=== PATIENT | female | born 1945 | race Caucasian/White ===

== ENCOUNTER 2022-01-22 03:54 | Inpatient (IN) | payer OTHER ==
[2022-01-22] MEDS ORDERED: SODIUM CHLORIDE 0.9% 500 ML INFUS.BAG IV ONE (04:33)
[2022-01-22] MEDS ORDERED: ACETAMINOPHEN 1000 MG/100 ML BAG IVPB ONE (04:33)
[2022-01-22 05:53] LABS: HEMATOCRIT 36.9 % (32.4-45.2); HEMOGLOBIN 12.4 GM/dL (10.7-15.3); MCH 28.9 pg (25.7-33.7); MCHC 33.5 g/dl (32.0-36.0); MEAN CELL VOLUME 86.2 fl (80-96); MEAN PLT VOLUME 8.6 fl (7.5-11.1); PLATELET COUNT 298 10^3/uL (134-434); RBC 4.28 M/mm3 (3.60-5.2); RDW 13.6 % (11.6-15.6); WHITE BLOOD COUNT 10.7 K/mm3 (4.0-10.0)
[2022-01-22 05:55] LABS: VENOUS BASE EXCESS 1.1 mmol/L (-2-2); VENOUS O2 SATURATION 77.4 % (70-80); VENOUS PCO2 35.8 mmHg (38-52); VENOUS PH 7.455 (7.310-7.410)
[2022-01-22 06:05] LABS: INR 1.04 (0.83-1.09)
[2022-01-22 06:08] LABS: ACTIVATED PTT 29.7 SECONDS (25.2-36.5)
[2022-01-22 06:11] LABS: CHLORIDE 106 mmol/L (98-107); SODIUM 141 mmol/L (136-145)
[2022-01-22 06:13] LABS: ALBUMIN 3.2 g/dl (3.4-5.0); ANION GAP 10 MMOL/L (8-16); BLOOD UREA NITROGEN 8.2 mg/dL (7-18); CALCIUM 8.2 mg/dL (8.5-10.1); CO2 25 mmol/L (21-32); GLUCOSE,RANDOM 95 mg/dL (74-106)
[2022-01-22 06:15] LABS: CREATININE 0.5 mg/dL (0.55-1.3); SGOT/AST 43 U/L (15-37)
[2022-01-22 06:16] LABS: SGPT/ALT 35 U/L (13-61)
[2022-01-22 06:18] LABS: BILIRUBIN,TOTAL 0.7 mg/dL (0.2-1); TOT PROT 6.3 g/dl (6.4-8.2)
[2022-01-22 06:19] LABS: ALK PHOS 252 U/L (45-117)
[2022-01-22] MEDS ORDERED: AZITHROMYCIN IVPB 500 MG in DEXTROSE 5%-WATER - 250 ML IVPB ONE (06:33)
[2022-01-22 06:40] LABS: LACTIC ACID 2.4 mmol/L (0.4-2.0)
[2022-01-22] MEDS ORDERED: AZITHROMYCIN IVPB 500 MG/250 ML BAG IVPB ONE (06:45)
[2022-01-22] MEDS ORDERED: CEFTRIAXONE 1 GM in DEXTROSE 5%-WATER - 50 ML IVPB ONE (07:36)
[2022-01-22 08:41] LABS: ANISOCYTOSIS 0; HELMET CELLS 0; HOWELL-JOLLY BODIES 0; MACROCYTOSIS 0; OVALOCYTE 0; ROULEAU 0; SICKELED CELLS 0; TARGET CELLS 0; TEAR DROP CELLS 0; TOXIC GRANULATION 0
[2022-01-22] MEDS ORDERED: cefTRIAXone SODIUM 1 GM VIAL ONE (09:23)
[2022-01-22] MEDS ORDERED: LACTATED RINGERS SOLUTION 1,000 ML IV SCH (10:15)
[2022-01-22 11:01] LABS: EPI CELLS 29 /uL (0-25.1); HYALINE CASTS 1 /uL (0-3.1); PH,URINE 6.5 (5.0-8.0); URINE APPEARANCE CLOUDY; URINE BACTERIA >9,000 /uL (0-1359); URINE BILIRUBIN NEGATIVE (NEGATIVE); URINE COLOR YELLOW; URINE GLUCOSE (UA) NEGATIVE (NEGATIVE); URINE KETONE NEGATIVE (NEGATIVE); URINE LEUK ESTERASE 2+ (NEGATIVE); URINE NITRITE POSITIVE (NEGATIVE); URINE PROTEIN TRACE (NEGATIVE); URINE RBC 29 /uL (0-23.9); URINE WBC 396 /uL (0-25.8)
[2022-01-22] MEDS ORDERED: LACTATED RINGERS SOLUTION 1000 ML INFUS.BAG IV ONE (12:49)
[2022-01-22] MEDS: ACETAMINOPHEN 325 MG TABLET (FP) PO PRN (12:53)
[2022-01-22] MEDS ORDERED: ACETAMINOPHEN 325 MG TABLET (FP) ONE (12:54)
[2022-01-22] MEDS ORDERED: POTASSIUM CHLORIDE ORAL LIQUID 20 MEQ/15 ML PO ONE (14:24)
[2022-01-22 15:42] LABS: LACTIC ACID 2.9 mmol/L (0.4-2.0)
[2022-01-22 16:13] LABS: MAGNESIUM 1.9 mg/dL (1.8-2.4)
[2022-01-22 16:17] LABS: PHOSPHOROUS 2.8 mg/dL (2.5-4.9)
[2022-01-22] MEDS ORDERED: SODIUM CHLORIDE 1,000 ML IV STA (16:27)
[2022-01-22] MEDS: PANTOPRAZOLE 40 MG TABLET PO SCH (17:29)
[2022-01-22] MEDS: SODIUM CHLORIDE 1,000 ML IV SCH (17:29)
[2022-01-22] MEDS ORDERED: PANTOPRAZOLE 40 MG TABLET PO ONE (17:59)
[2022-01-22] MEDS ORDERED: SODIUM CHLORIDE 500 ML IV STA ×2 (21:48→22:44)
[2022-01-22 22:36] LABS: LACTIC ACID 3.1 mmol/L (0.4-2.0)
[2022-01-22] MEDS ORDERED: PIPERACILLIN/TAZOB 4.5 GM 4.5 GM/100 ML BAG IVPB ONE (22:46)
[2022-01-22] MEDS: PIPERACILLIN/TAZOB 4.5 GM 4.5 GM in DEXTROSE 5%-WATER 100 ML IVPB SCH ×2 (22:47→22:55)
[2022-01-23] MEDS ORDERED: SODIUM CHLORIDE 1,000 ML IV STA (00:53)
[2022-01-23] MEDS ORDERED: ACETAMINOPHEN 325 MG TABLET (FP) ONE (03:23)
[2022-01-23] MEDS: ACETAMINOPHEN 325 MG TABLET (FP) PO PRN (03:30)
[2022-01-23 07:24] LABS: BASO % 0.4 % (0-2.0); EOS % 0.2 % (0-4.5); HEMATOCRIT 28.1 % (32.4-45.2); HEMOGLOBIN 9.7 GM/dL (10.7-15.3); LYMPH % 8.8 % (8-40); MCH 29.8 pg (25.7-33.7); MCHC 34.7 g/dl (32.0-36.0); MEAN CELL VOLUME 85.9 fl (80-96); MEAN PLT VOLUME 8.8 fl (7.5-11.1); MONO % 5.5 % (3.8-10.2); NEUT % 85.1 % (42.8-82.8); PLATELET COUNT 233 10^3/uL (134-434); RBC 3.27 M/mm3 (3.60-5.2); RDW 13.8 % (11.6-15.6); WHITE BLOOD COUNT 11.7 K/mm3 (4.0-10.0)
[2022-01-23 07:46] LABS: BLOOD UREA NITROGEN 8.2 mg/dL (7-18); MAGNESIUM 1.8 mg/dL (1.8-2.4)
[2022-01-23 07:48] LABS: CREATININE 0.4 mg/dL (0.55-1.3); PHOSPHOROUS 2.2 mg/dL (2.5-4.9)
[2022-01-23 07:50] LABS: BILIRUBIN,TOTAL 0.8 mg/dL (0.2-1); TOT PROT 4.7 g/dl (6.4-8.2)
[2022-01-23 07:58] LABS: ALBUMIN 2.3 g/dl (3.4-5.0)
[2022-01-23] MEDS: PIPERACILLIN/TAZOB 4.5 GM 4.5 GM in DEXTROSE 5%-WATER 100 ML IVPB SCH ×3 (09:04→15:59)
[2022-01-23] MEDS ORDERED: PANTOPRAZOLE 40 MG TABLET PO ONE (09:51)
[2022-01-23] MEDS ORDERED: POTASSIUM CHLORIDE TABS 20 MEQ TABLET.ER (FP) PO ONE (09:51)
[2022-01-23] MEDS ORDERED: ENOXAPARIN NA (PORCINE) 40 MG/0.4 ML DISP.SYRIN SQ ONE (09:52)
[2022-01-23] MEDS ORDERED: AZITHROMYCIN IVPB 500 MG/250 ML BAG IVPB ONE (09:52)
[2022-01-23] MEDS ORDERED: CEFTRIAXONE 1 GM in DEXTROSE 5%-WATER - 50 ML IVPB SCH (10:00)
[2022-01-23] MEDS ORDERED: AZITHROMYCIN IVPB 500 MG/250 ML BAG IVPB SCH (10:00)
[2022-01-23] MEDS: ENOXAPARIN NA (PORCINE) 40 MG/0.4 ML DISP.SYRIN SQ SCH (10:26)
[2022-01-23] MEDS: PANTOPRAZOLE 40 MG TABLET PO SCH (10:26)
[2022-01-23] MEDS: POTASSIUM CHLORIDE TABS 20 MEQ TABLET.ER (FP) PO SCH ×2 (10:26→21:24)
[2022-01-23] MEDS ORDERED: PIPERACILLIN/TAZOB 4.5 GM 4.5 GM/100 ML BAG IVPB ONE (11:41)
[2022-01-23 13:16] VITALS: BMI 24.0
[2022-01-23] MEDS: SODIUM CHLORIDE 1,000 ML IV SCH ×2 (13:34→17:45)
[2022-01-23] MEDS: PIPERACILLIN/TAZOB 3.375 GM 3.375 GM in DEXTROSE 5%-WATER - 50 ML IVPB SCH (17:16)
[2022-01-24] MEDS: PIPERACILLIN/TAZOB 3.375 GM 3.375 GM in DEXTROSE 5%-WATER - 50 ML IVPB SCH ×3 (01:34→17:04)
[2022-01-24] MEDS: SODIUM CHLORIDE 1,000 ML IV SCH ×3 (02:06→17:04)
[2022-01-24] MEDS: PANTOPRAZOLE 40 MG TABLET PO SCH (09:27)
[2022-01-24] MEDS: ENOXAPARIN NA (PORCINE) 40 MG/0.4 ML DISP.SYRIN SQ SCH (09:27)
[2022-01-24 09:54] LABS: BASO % 0.9 % (0-2.0); EOS % 2.1 % (0-4.5); HEMATOCRIT 33.1 % (32.4-45.2); HEMOGLOBIN 11.1 GM/dL (10.7-15.3); LYMPH % 24.8 % (8-40); MCHC 33.7 g/dl (32.0-36.0); MEAN CELL VOLUME 85.9 fl (80-96); MEAN PLT VOLUME 9.3 fl (7.5-11.1); MONO % 9.9 % (3.8-10.2); NEUT % 62.3 % (42.8-82.8); PLATELET COUNT 284 10^3/uL (134-434); RBC 3.85 M/mm3 (3.60-5.2); RDW 13.7 % (11.6-15.6); WHITE BLOOD COUNT 5.4 K/mm3 (4.0-10.0)
[2022-01-24 10:21] LABS: ALBUMIN 2.6 g/dl (3.4-5.0); BLOOD UREA NITROGEN 3.8 mg/dL (7-18); CALCIUM 8.2 mg/dL (8.5-10.1)
[2022-01-24 10:24] LABS: CREATININE 0.6 mg/dL (0.55-1.3)
[2022-01-24 10:25] LABS: BILIRUBIN,TOTAL 0.6 mg/dL (0.2-1); TOT PROT 5.7 g/dl (6.4-8.2)
[2022-01-24] MEDS: LIDOCAINE 5% TOPICAL PATCH TP SCH (10:42)
[2022-01-24] MEDS: LIDOCAINE PATCH REMOVAL MC SCH (21:51)
[2022-01-25] MEDS: PIPERACILLIN/TAZOB 3.375 GM 3.375 GM in DEXTROSE 5%-WATER - 50 ML IVPB SCH (01:07)
[2022-01-25] MEDS: SODIUM CHLORIDE 1,000 ML IV SCH (05:41)
[2022-01-25 09:41] LABS: BASO % 1.1 % (0-2.0); EOS % 3.1 % (0-4.5); HEMATOCRIT 36.4 % (32.4-45.2); HEMOGLOBIN 12.1 GM/dL (10.7-15.3); MCH 28.5 pg (25.7-33.7); MCHC 33.2 g/dl (32.0-36.0); MEAN CELL VOLUME 85.9 fl (80-96); MEAN PLT VOLUME 9.4 fl (7.5-11.1); MONO % 8.6 % (3.8-10.2); NEUT % 53.2 % (42.8-82.8); PLATELET COUNT 338 10^3/uL (134-434); RBC 4.24 M/mm3 (3.60-5.2); RDW 14.4 % (11.6-15.6); WHITE BLOOD COUNT 4.3 K/mm3 (4.0-10.0)
[2022-01-25 09:59] LABS: CALCIUM 8.8 mg/dL (8.5-10.1)
[2022-01-25 10:00] LABS: ALBUMIN 2.8 g/dl (3.4-5.0); BLOOD UREA NITROGEN 4.2 mg/dL (7-18)
[2022-01-25 10:02] LABS: CREATININE 0.5 mg/dL (0.55-1.3)
[2022-01-25 10:04] LABS: BILIRUBIN,TOTAL 0.5 mg/dL (0.2-1)
[2022-01-25] MEDS: ENOXAPARIN NA (PORCINE) 40 MG/0.4 ML DISP.SYRIN SQ SCH (10:12)
[2022-01-25] MEDS: PANTOPRAZOLE 40 MG TABLET PO SCH (10:12)
[2022-01-25] MEDS: LIDOCAINE 5% TOPICAL PATCH TP SCH (10:12)
[2022-01-25] MEDS: MEROPENEM 1 GM in DEXTROSE 5%-WATER 100 ML IVPB SCH ×2 (10:13→17:01)
[2022-01-25] MEDS: LIDOCAINE PATCH REMOVAL MC SCH (22:15)
[2022-01-26] MEDS: MEROPENEM 1 GM in DEXTROSE 5%-WATER 100 ML IVPB SCH ×4 (02:10→18:32)
[2022-01-26 09:28] LABS: BASO % 1.2 % (0-2.0); EOS % 2.8 % (0-4.5); HEMATOCRIT 39.1 % (32.4-45.2); HEMOGLOBIN 13.4 GM/dL (10.7-15.3); MCH 29.3 pg (25.7-33.7); MCHC 34.3 g/dl (32.0-36.0); MEAN CELL VOLUME 85.5 fl (80-96); MEAN PLT VOLUME 8.8 fl (7.5-11.1); MONO % 10.8 % (3.8-10.2); NEUT % 53.2 % (42.8-82.8); PLATELET COUNT 394 10^3/uL (134-434); RBC 4.57 M/mm3 (3.60-5.2); RDW 13.8 % (11.6-15.6); WHITE BLOOD COUNT 3.8 K/mm3 (4.0-10.0)
[2022-01-26 10:00] LABS: ALBUMIN 3.1 g/dl (3.4-5.0); BLOOD UREA NITROGEN 5.1 mg/dL (7-18); CALCIUM 9.3 mg/dL (8.5-10.1); MAGNESIUM 2.2 mg/dL (1.8-2.4)
[2022-01-26 10:03] LABS: CREATININE 0.5 mg/dL (0.55-1.3)
[2022-01-26 10:05] LABS: BILIRUBIN,TOTAL 0.5 mg/dL (0.2-1); TOT PROT 6.7 g/dl (6.4-8.2)
[2022-01-26] MEDS: LIDOCAINE 5% TOPICAL PATCH TP SCH (10:45)
[2022-01-26] MEDS: ENOXAPARIN NA (PORCINE) 40 MG/0.4 ML DISP.SYRIN SQ SCH (10:47)
[2022-01-26] MEDS: PANTOPRAZOLE 40 MG TABLET PO SCH (10:47)
[2022-01-26] MEDS ORDERED: PANTOPRAZOLE SODIUM 40 MG VIAL IVPUSH ONE (17:34)
[2022-01-26] MEDS ORDERED: ACETAMINOPHEN 325 MG TABLET (FP) PO PRN (19:54)
[2022-01-26] MEDS: LIDOCAINE PATCH REMOVAL MC SCH (21:51)
[2022-01-27] MEDS: MEROPENEM 1 GM in DEXTROSE 5%-WATER 100 ML IVPB SCH ×3 (02:06→17:28)
[2022-01-27] MEDS: ENOXAPARIN NA (PORCINE) 40 MG/0.4 ML DISP.SYRIN SQ SCH (11:22)
[2022-01-27] MEDS: PANTOPRAZOLE 40 MG TABLET PO SCH ×2 (11:23→22:15)
[2022-01-27] MEDS: LIDOCAINE 5% TOPICAL PATCH TP SCH (11:23)
[2022-01-27] MEDS: LIDOCAINE PATCH REMOVAL MC SCH (22:15)
[2022-01-28] MEDS: MEROPENEM 1 GM in DEXTROSE 5%-WATER 100 ML IVPB SCH ×3 (02:36→17:40)
[2022-01-28] MEDS: ENOXAPARIN NA (PORCINE) 40 MG/0.4 ML DISP.SYRIN SQ SCH (10:10)
[2022-01-28] MEDS: PANTOPRAZOLE 40 MG TABLET PO SCH ×2 (10:10→21:58)
[2022-01-28] MEDS: LIDOCAINE 5% TOPICAL PATCH TP SCH (10:10)
[2022-01-28] MEDS ORDERED: LIDOCAINE 5% TOPICAL PATCH TP ONE (10:43)
[2022-01-28] MEDS: LIDOCAINE PATCH REMOVAL MC SCH ×2 (21:57)
[2022-01-29] MEDS: MEROPENEM 1 GM in DEXTROSE 5%-WATER 100 ML IVPB SCH ×3 (01:38→17:18)
[2022-01-29] MEDS: PANTOPRAZOLE 40 MG TABLET PO SCH ×2 (10:03→21:58)
[2022-01-29] MEDS: ENOXAPARIN NA (PORCINE) 40 MG/0.4 ML DISP.SYRIN SQ SCH (10:03)
[2022-01-29] MEDS: LIDOCAINE 5% TOPICAL PATCH TP SCH (10:04)
[2022-01-29] MEDS ORDERED: SIMETHICONE 80 MG TAB.CHEW (FP) PO ONE (18:30)
[2022-01-29] MEDS: LIDOCAINE PATCH REMOVAL MC SCH ×2 (22:00)
[2022-01-30] MEDS ORDERED: ERTAPENEM SODIUM 1 GM/50 ML PRE-DOCKED IVPB SCH
[2022-01-30] MEDS: MEROPENEM 1 GM in DEXTROSE 5%-WATER 100 ML IVPB SCH ×2 (02:02→12:44)
[2022-01-30] MEDS: PANTOPRAZOLE 40 MG TABLET PO SCH (12:44)
[2022-01-30] MEDS: ENOXAPARIN NA (PORCINE) 40 MG/0.4 ML DISP.SYRIN SQ SCH (12:45)
[2022-01-30] MEDS: LIDOCAINE 5% TOPICAL PATCH TP SCH (12:46)
[2022-01-30 13:43] VITALS: BP 115/65; PULSE 91; RESP 19; TEMP 98.2
== END 2022-01-30 13:39 | disposition home or self-care (01) | DRG 720 ==
LOC: JER 03:54 → JERBED 06:34 → J7W 01-23 12:18
PROVIDERS: ADMIT Internal Medicine; ATTEND Nurse Practitioner Family
PROC: 02HV33Z Insertion of Infusion Device into Superior Vena Cava, Percutaneous Approach (ICD-10-PCS; principal; 2022-01-30)
PROC: B548ZZA Ultrasonography of Superior Vena Cava, Guidance (ICD-10-PCS; 2022-01-30)
DX: A41.59 Other Gram-negative sepsis (principal); J18.9 Pneumonia, unspecified organism; E87.20 Acidosis, unspecified; L97.828 Non-pressure chronic ulcer of other part of left lower leg with other specified severity; L97.818 Non-pressure chronic ulcer of other part of right lower leg with other specified severity; R00.0 Tachycardia, unspecified; I45.10 Unspecified right bundle-branch block; E87.6 Hypokalemia; N39.0 Urinary tract infection, site not specified; K21.9 Gastro-esophageal reflux disease without esophagitis; B96.20 Unspecified Escherichia coli [E. coli] as the cause of diseases classified elsewhere; B95.2 Enterococcus as the cause of diseases classified elsewhere; M79.10 Myalgia, unspecified site; R07.89 Other chest pain; Z87.19 Personal history of other diseases of the digestive system; R51.9 Headache, unspecified
CPT/HCPCS: 0241U-QW; 36415; 36569; 71045-TC-FY; 77001-TC-FY; 80053; 81003; 82550; 82553; 82803; 83605; 83735; 83880; 84100; 84484; 85025; 85610; 85730; 86140; 86850; 86900; 86901; 87040; 87086; 87186; 87899; 93005; 93010; 97116-GP; 97161-GP; 99285-25; C1751

== ENCOUNTER 2022-01-31 11:11 | Day surgery (SDC) | payer OTHER ==
[2022-01-31] MEDS ORDERED: ERTAPENEM SODIUM 1 GM/50 ML PRE-DOCKED IVPB SCH (12:15)
[2022-01-31 13:15] VITALS: BP 112/67; PULSE 67; RESP 18; TEMP 97.9
== END 2022-01-31 13:19 | disposition home or self-care (01) ==
LOC: FINFUSION 11:11 → FM/S 11:12 → FINFUSION 13:19
PROVIDERS: ATTEND Internal Medicine Infectious Disease
DX: R78.81 Bacteremia (principal)
CPT/HCPCS: 96365

== ENCOUNTER 2022-02-01 12:05 | Day surgery (SDC) | payer OTHER ==
[2022-02-01] MEDS ORDERED: ERTAPENEM SODIUM 1 GM in SODIUM CHLORIDE 50 ML IVPB ONE (12:30)
[2022-02-01 12:50] VITALS: BP 104/62; PULSE 89; RESP 16; TEMP 98.9
== END 2022-02-01 13:20 | disposition home or self-care (01) ==
LOC: FINFUSION 12:05 → FM/S 12:06 → FINFUSION 13:20
PROVIDERS: ATTEND Internal Medicine Infectious Disease
DX: R78.81 Bacteremia (principal)
CPT/HCPCS: 96365

== ENCOUNTER 2022-02-02 11:43 | Day surgery (SDC) | payer OTHER ==
[2022-02-02] MEDS ORDERED: ERTAPENEM SODIUM 1 GM in SODIUM CHLORIDE 50 ML IVPB ONE (12:30)
[2022-02-02 12:43] VITALS: BP 102/67; PULSE 98; RESP 18; TEMP 98
== END 2022-02-02 12:45 | disposition home or self-care (01) ==
LOC: FINFUSION 11:43 → FM/S 11:48 → FINFUSION 12:45
PROVIDERS: ATTEND Internal Medicine Infectious Disease
DX: R78.81 Bacteremia (principal)
CPT/HCPCS: 96365

== ENCOUNTER 2022-02-03 11:10 | Day surgery (SDC) | payer OTHER ==
[2022-02-03] MEDS ORDERED: ERTAPENEM SODIUM 1 GM in SODIUM CHLORIDE 50 ML IVPB ONE (11:30)
[2022-02-03 12:48] VITALS: BP 104/67; PULSE 87; RESP 17; TEMP 97.8
== END 2022-02-03 12:49 | disposition home or self-care (01) ==
LOC: FINFUSION 11:10 → FM/S 11:11 → FINFUSION 12:49
PROVIDERS: ATTEND Internal Medicine Infectious Disease
DX: R78.81 Bacteremia (principal)
CPT/HCPCS: 96365

== ENCOUNTER 2022-02-04 11:16 | Day surgery (SDC) | payer OTHER ==
[2022-02-04] MEDS ORDERED: ERTAPENEM SODIUM 1 GM in SODIUM CHLORIDE 50 ML IVPB ONE (11:30)
[2022-02-04 12:46] VITALS: BP 112/64; PULSE 74; RESP 18; TEMP 98.4
== END 2022-02-04 12:47 | disposition home or self-care (01) ==
LOC: FINFUSION 11:16 → FM/S 11:17 → FINFUSION 12:47
PROVIDERS: ATTEND Internal Medicine Infectious Disease
DX: R78.81 Bacteremia (principal)
CPT/HCPCS: 96365

== ENCOUNTER 2022-02-05 10:46 | Day surgery (SDC) | payer OTHER ==
[2022-02-05] MEDS ORDERED: ERTAPENEM SODIUM 1 GM in SODIUM CHLORIDE 50 ML IVPB ONE (11:00)
[2022-02-05 12:24] VITALS: BP 120/65; PULSE 78; RESP 16; TEMP 98.7
== END 2022-02-05 13:23 | disposition home or self-care (01) ==
LOC: FINFUSION 10:46 → FM/S 10:46 → FINFUSION 13:23
PROVIDERS: ATTEND Internal Medicine Infectious Disease
DX: R78.81 Bacteremia (principal)
CPT/HCPCS: 96365

== ENCOUNTER 2022-04-27 08:36 | Day surgery (SDC) | payer OTHER ==
[2022-04-24 11:15] VITALS: BMI 25.7
[~2022-04-27 08:36] MED LIST: ACETAMINOPHEN 325 MG TABLET (FP) PO PRN; LACTATED RINGERS SOLUTION 1,000 ML IV SCH; ONDANSETRON 4 MG/2 ML VIAL IVPUSH PRN
[2022-04-27] MEDS ORDERED: BUPIVACAINE LIPOSOME/PF (EXPAREL) 266 MG/20 ML VIAL ONE (08:48)
[2022-04-27] MEDS ORDERED: BUPIVACAINE HCL/PF 0.5% (5MG/ML) 10 ML VIAL ONE (08:48)
[2022-04-27] MEDS ORDERED: ACETAMINOPHEN INJECTION 100 ML IVPB ONE (08:48)
[2022-04-27] MEDS ORDERED: VANCOMYCIN 1,000 MG VIAL (RESTRICTED TO ID ONLY) ONE ×2 (08:56→10:50)
[2022-04-27] MEDS ORDERED: CEFAZOLIN 2 GM in DEXTROSE 5%-WATER - 50 ML IVPB ONE (09:00)
[2022-04-27] MEDS ORDERED: VANCOMYCIN 1 GM in D5W (PRE-DOCKED) 1,000 MG/250 ML IVPB ONE (09:00)
[2022-04-27] MEDS ORDERED: FENTANYL CITRATE/PF 50 MCG/ML VIAL ONE (09:49)
[2022-04-27] MEDS ORDERED: MIDAZOLAM HCL 2 MG/2 ML SINGLE DOSE VIAL ONE (09:49)
[2022-04-27] MEDS ORDERED: TRANEXAMIC ACID 1000 MG/10 ML VIAL IVPUSH ONE (10:15)
[2022-04-27] MEDS ORDERED: TRANEXAMIC ACID 1000 MG/10 ML VIAL ONE ×2 (10:50→12:52)
[2022-04-27] MEDS ORDERED: ePHEDrine SULFATE 50 MG/1 ML AMPULE ONE (11:39)
[2022-04-27] MEDS ORDERED: BUPIVICAINE 0.25%/MORPH PF/KETOROLAC - 51ML DISP.SYRINGE IA ONE (12:22)
[2022-04-27] MEDS ORDERED: MAG HYDROX/AL HYDROX/SIMETH 30 ML UNIT-DOSE CUP PO PRN (13:31)
[2022-04-27] MEDS ORDERED: ONDANSETRON 4 MG/2 ML VIAL IVPUSH PRN (13:31)
[2022-04-27] MEDS ORDERED: oxyCODONE HCL 5 MG TABLET PO PRN (16:35)
[2022-04-27] MEDS: oxyCODONE HCL 5 MG TABLET PO PRN (17:38)
[2022-04-27] MEDS: ACETAMINOPHEN 1000 MG/100 ML BAG IVPB SCH (17:40)
[2022-04-27] MEDS: CEFAZOLIN SODIUM 2 GM in DEXTROSE 5%-WATER 100 ML IVPB SCH (17:40)
[2022-04-27] MEDS: SENNOSIDES/DOCUSATE COMBO (SENNA PLUS) TABLET (UD) PO SCH (21:56)
[2022-04-27] MEDS: GABAPENTIN 300 MG CAPSULE PO SCH (21:56)
[2022-04-27 22:24] VITALS: RESP 18
[2022-04-28] MEDS: CEFAZOLIN SODIUM 2 GM in DEXTROSE 5%-WATER 100 ML IVPB SCH ×2 (02:30→11:11)
[2022-04-28 07:44] LABS: HEMATOCRIT 32.5 % (32.4-45.2); HEMOGLOBIN 11.2 G/dL (10.7-15.3); MCH 29.3 pg (25.7-33.7); MCHC 34.4 g/dl (32.0-36.0); MEAN CELL VOLUME 85.4 fl (80-96); MEAN PLT VOLUME 8.5 fl (7.5-11.1); PLATELET COUNT 267.7 10^3/uL (134-434); RBC 3.81 10^6/uL (3.60-5.2); RDW 15.5 % (11.6-15.6); WHITE BLOOD COUNT 11.4 10^3/uL (4.0-10.8)
[2022-04-28 07:45] LABS: CALCIUM 8.7 mg/dl (8.5-10); CREATININE 0.6 mg/dl (0.55-1.3)
[2022-04-28] MEDS: ACETAMINOPHEN 1000 MG/100 ML BAG IVPB SCH ×2 (09:27)
[2022-04-28] MEDS: oxyCODONE HCL 5 MG TABLET PO PRN (09:28)
[2022-04-28] MEDS: GABAPENTIN 300 MG CAPSULE PO SCH (09:29)
[2022-04-28] MEDS: SENNOSIDES/DOCUSATE COMBO (SENNA PLUS) TABLET (UD) PO SCH (09:30)
[2022-04-28] MEDS ORDERED: MULTIVITAMINS (DAILY MVI) TABLET (FP) PO SCH (10:00)
[2022-04-28] MEDS ORDERED: PANTOPRAZOLE 40 MG TABLET PO SCH (10:00)
[2022-04-28] MEDS ORDERED: ASPIRIN 325 MG TABLET PO SCH (10:00)
[2022-04-28 14:25] VITALS: BP 111/58; PULSE 61; TEMP 98
== END 2022-04-28 17:01 ==
LOC: FASUSAT 08:36 → FM/S 15:08 → FASUSAT 04-28 17:01
PROVIDERS: ATTEND Internal Medicine
PROC: 8E0Y0CZ Robotic Assisted Procedure of Lower Extremity, Open Approach (ICD-10-PCS; 2022-04-27)
PROC: 0SRC0J9 Replacement of Right Knee Joint with Synthetic Substitute, Cemented, Open Approach (ICD-10-PCS; principal; 2022-04-27 11:36)
DX: M17.11 Unilateral primary osteoarthritis, right knee (principal)
CPT/HCPCS: 20985; 27447; C1776; S2900; 36415; 73560-TC-RT-FY; 80048; 85027; 88305-TC; 88311-TC; 94760; 97010-GP; 97116-GP; 97162-GP; C1889

== ENCOUNTER 2022-07-06 06:07 | Day surgery (SDC) | payer OTHER ==
[2022-07-03 15:16] VITALS: BMI 25.2
[2022-07-06] MEDS ORDERED: MIDAZOLAM HCL 2 MG/2 ML SINGLE DOSE VIAL ONE ×3 (06:58→10:30)
[2022-07-06] MEDS ORDERED: BUPIVACAINE HCL/PF 0.5% (5MG/ML) 10 ML VIAL ONE (07:01)
[2022-07-06] MEDS ORDERED: BUPIVACAINE HCL/PF 0.5% (5 MG/ML) 30 ML VIAL IJ ONE (07:03)
[2022-07-06] MEDS ORDERED: BUPIVACAINE LIPOSOME/PF (EXPAREL) 266 MG/20 ML VIAL ONE (07:03)
[2022-07-06] MEDS ORDERED: VANCOMYCIN 1,000 MG VIAL (RESTRICTED TO ID ONLY) ONE ×2 (07:08→09:18)
[2022-07-06] MEDS ORDERED: TRANEXAMIC ACID 1000 MG/10 ML VIAL ONE ×2 (09:18→10:33)
[2022-07-06] MEDS ORDERED: KETOROLAC TROMETHAMINE 30 MG/1 ML VIAL ONE (09:18)
[2022-07-06] MEDS ORDERED: ceFAZolin SODIUM 1 GM VIAL ONE (09:18)
[2022-07-06] MEDS ORDERED: DEXAMETHASONE SOD PHOSPHATE 4 MG/1 ML VIAL ONE (09:18)
[2022-07-06] MEDS ORDERED: PHENYLEPHRINE HCL 10 MG/1 ML SINGLE DOSE VIAL ONE (09:18)
[2022-07-06] MEDS ORDERED: ONDANSETRON 4 MG/2 ML VIAL ONE (09:18)
[2022-07-06] MEDS ORDERED: BUPIVICAINE 0.25%/MORPH PF/KETOROLAC - 51ML DISP.SYRINGE IA ONE ×2 (09:41→10:52)
[2022-07-06] MEDS ORDERED: MAGNESIUM HYDROX 2400MG/30ML ORAL SUSPENSION 30 ML CUP PO PRN (11:34)
[2022-07-06] MEDS ORDERED: ONDANSETRON 4 MG/2 ML VIAL IVPUSH PRN (11:34)
[2022-07-06] MEDS ORDERED: MAG HYDROX/AL HYDROX/SIMETH 30 ML UNIT-DOSE CUP PO PRN (11:34)
[2022-07-06] MEDS ORDERED: PROMETHAZINE HCL 25 MG/1 ML VIAL IVPB PRN (11:52)
[2022-07-06] MEDS ORDERED: ACETAMINOPHEN 1000 MG/100 ML BAG IVPB ONE (11:52)
[2022-07-06] MEDS ORDERED: oxyCODONE HCL 5 MG TABLET PO PRN ×2 (11:52)
[2022-07-06] MEDS ORDERED: LACTATED RINGERS SOLUTION 1,000 ML IV SCH (12:00)
[2022-07-06] MEDS ORDERED: KETOROLAC TROMETHAMINE 15 MG/ML VIAL IVPUSH SCH (12:00)
[2022-07-06] MEDS ORDERED: ACETAMINOPHEN INJECTION 100 ML IVPB ONE (12:30)
[2022-07-06] MEDS ORDERED: FENTANYL CITRATE/PF 50 MCG/ML VIAL ONE (13:11)
[2022-07-06] MEDS: ACETAMINOPHEN 500 MG TABLET (FP) PO SCH (18:25)
[2022-07-06] MEDS: CEFAZOLIN SODIUM 2 GM in DEXTROSE 5%-WATER 100 ML IVPB SCH (18:35)
[2022-07-06] MEDS: KETOROLAC TROMETHAMINE 15 MG/ML VIAL IVPUSH SCH (19:17)
[2022-07-06] MEDS ORDERED: VANCOMYCIN 1 GM in D5W (PRE-DOCKED) 1,000 MG/250 ML (RESTRICTED TO ID ONLY IVPB ONE (21:00)
[2022-07-06] MEDS: SENNOSIDES/DOCUSATE COMBO (SENNA PLUS) TABLET (UD) PO SCH (21:38)
[2022-07-06] MEDS: oxyCODONE HCL 10 MG SUSTAINED ACTING TABLET PO SCH (21:38)
[2022-07-06] MEDS: GABAPENTIN 300 MG CAPSULE PO SCH (21:38)
[2022-07-06] MEDS: PANTOPRAZOLE 40 MG TABLET PO SCH (21:38)
[2022-07-07] MEDS: CEFAZOLIN SODIUM 2 GM in DEXTROSE 5%-WATER 100 ML IVPB SCH ×2 (00:51→09:34)
[2022-07-07] MEDS: KETOROLAC TROMETHAMINE 15 MG/ML VIAL IVPUSH SCH (00:54)
[2022-07-07] MEDS: ACETAMINOPHEN 500 MG TABLET (FP) PO SCH ×4 (00:55→17:44)
[2022-07-07 08:26] LABS: HEMATOCRIT 33.8 % (32.4-45.2); HEMOGLOBIN 11.2 G/dL (10.7-15.3); MCH 28.4 pg (25.7-33.7); MCHC 33.1 g/dl (32.0-36.0); MEAN CELL VOLUME 86.1 fl (80-96); MEAN PLT VOLUME 9.3 fl (7.5-11.1); PLATELET COUNT 293.4 10^3/uL (134-434); RBC 3.93 10^6/uL (3.60-5.2); RDW 15.9 % (11.6-15.6); WHITE BLOOD COUNT 11.4 10^3/uL (4.0-10.8)
[2022-07-07 08:31] LABS: CREATININE 0.5 mg/dl (0.55-1.3)
[2022-07-07 09:26] VITALS: RESP 17
[2022-07-07] MEDS: SENNOSIDES/DOCUSATE COMBO (SENNA PLUS) TABLET (UD) PO SCH (09:33)
[2022-07-07] MEDS: PANTOPRAZOLE 40 MG TABLET PO SCH (09:33)
[2022-07-07] MEDS: GABAPENTIN 300 MG CAPSULE PO SCH (09:33)
[2022-07-07] MEDS: oxyCODONE HCL 10 MG SUSTAINED ACTING TABLET PO SCH (09:37)
[2022-07-07] MEDS ORDERED: MULTIVITAMINS (DAILY MVI) TABLET (FP) PO SCH (10:00)
[2022-07-07] MEDS ORDERED: ASPIRIN 325 MG TABLET PO SCH (10:00)
[2022-07-07 14:41] VITALS: BP 99/50; PULSE 74; TEMP 97.7
== END 2022-07-07 19:30 ==
LOC: FASUSAT 06:07 → FM/S 14:28 → FASUSAT 07-07 19:30
PROVIDERS: ATTEND Internal Medicine
PROC: 8E0Y0CZ Robotic Assisted Procedure of Lower Extremity, Open Approach (ICD-10-PCS; 2022-07-06)
PROC: 0SRC0J9 Replacement of Right Knee Joint with Synthetic Substitute, Cemented, Open Approach (ICD-10-PCS; principal; 2022-07-06 09:16)
DX: M17.12 Unilateral primary osteoarthritis, left knee (principal)
CPT/HCPCS: 20985; 27447; C1776; S2900; 36415; 73560-TC-LT-FY; 80048; 85027; 88305-TC; 88311-TC; 94760; 97010-GP; 97116-GP; 97162-GP; C1889; C9803-CS; U0003; U0005